=== PATIENT | female | born 2000 | race Two or more races ===

== ENCOUNTER 2023-05-11 16:07 | Outpatient (REF) | payer MEDICAID, SELFPAY ==
--- NOTE | ~2023-05-11 | XR_ITS ---
EXAMINATION: XR SCOLIOSIS CLINICAL INFORMATION: Chronic low back pain with bilateral sciatica COMPARISON: None available. TECHNIQUE: A single view of the thoracolumbar spine is obtained. FINDINGS: There are no intrinsic vertebral anomalies. There is an intrauterine device in the pelvis. There is a left convex curvature of the T5, measuring 14 degrees. There is a right convex thoracolumbar curvature, apex at L2, measuring 16 degrees. XR/XR scoliosis survey IMPRESSION: Scoliosis of the thoracic and lumbar spine.
== END 2023-05-11 16:08 | disposition home or self-care (01) ==
LOC: HO.XRAY 16:07
PROVIDERS: Visit Provider Registered Nurse
DX: M54.41 Lumbago with sciatica, right side (principal); M54.42 Lumbago with sciatica, left side; G89.29 Other chronic pain
CPT/HCPCS: 72082

== ENCOUNTER 2023-08-09 07:46 | Outpatient (REF) | payer MEDICAID, SELFPAY ==
--- NOTE | ~2023-08-09 | CT_ITS ---
EXAMINATION: CT LUMBAR SPINE WITHOUT CONTRAST CLINICAL INFORMATION: Radiculopathy with lower extremity symptoms COMPARISON: Scoliosis survey radiographs 05/11/2023 TECHNIQUE: A multidetector CT acquisition of the lumbar spine is obtained without contrast. This CT examination was performed using dose optimization techniques as appropriate, variously including the following: *Automated exposure control *Adjustment of mA and/or kV according to patient size (this includes techniques or standardized protocols for targeted exams where dose is matched to indication/reason for exam; i.e. extremities or head) *Use of iterative reconstruction technique DLP: 511 mGy-cm FINDINGS: The normal lumbar lordosis is preserved. Shallow dextrocurvature of the lumbar spine with scoliotic deformity better characterized on dedicated radiographs. Lumbar vertebral body heights are maintained. No expansile or destructive osseous lesion. No significant spondylolisthesis. Please note that canal patency is not well assessed on this examination due to inherent limitations of CT without intrathecal contrast. Within these limitations, multilevel degenerative changes with level by level detail are as follows: L1-L2: No significant spinal canal or neural foraminal stenosis. L2-L3: No significant spinal canal or neural foraminal stenosis. L3-L4: No significant spinal canal or neural foraminal stenosis. L4-L5: No significant spinal canal or neural foraminal stenosis. L5-S1: No significant spinal canal or neural foraminal stenosis. Partially visualized intrauterine device. CT/CT lumbar spine wo IV con IMPRESSION: Partially visualized thoracolumbar scoliotic deformity better characterized on prior dedicated radiograph examination. No significant spinal canal or neural foraminal stenosis in the lumbar spine. If symptoms persist, MRI can be considered for further evaluation.
== END 2023-08-09 07:47 | disposition home or self-care (01) ==
LOC: HO.CT 07:46
PROVIDERS: Visit Provider Internal Medicine
DX: M54.10 Radiculopathy, site unspecified (principal)
CPT/HCPCS: 72131

== ENCOUNTER 2023-09-27 10:07 | Outpatient (REF) | payer MEDICAID, SELFPAY ==
[2023-09-27 11:18] LABS: MANUAL DIFF FLAG NO
[2023-09-27 11:23] LABS: Basophils Percent Auto 0.4 % (0-2); Eosinophils Absolute Auto 0.1 X10*3/uL (0.0-0.4); Eosinophils Percent Auto 0.9 % (0-4); Hemoglobin 12.6 g/dl (12.0-16.0); Imm Gran Abs Auto 0.02 X10*3/uL (0.00-0.03); Imm Gran Pct Auto 0.3 % (0.0-0.4); Lymphocytes Absolute Auto 2.2 X10*3/uL (1.2-4.9); Lymphocytes Percent Auto 31.3 % (20-40); Mean Corpuscular HGB Conc 30.7 g/dl (31.0-35.0); Mean Corpuscular Hemoglobin 24.2 pg (27.0-33.0); Mean Corpuscular Volume 78.7 fL (80.0-98.0); Monocytes Absolute Auto 0.4 X10*3/uL (0.1-1.2); Monocytes Percent Auto 5.8 % (2-11); Neutrophils Absolute Auto 4.3 x10*3/uL (2.0-8.3); Neutrophils Percent Auto 61.3 % (45-73); Platelet Count 272 X10*3/uL (160-400); Red Blood Count 5.21 X10*6/uL (4.20-5.50); Red Cell Distribution Width 14.5 % (11.0-16.0); White Blood Count 6.9 X10*3/uL (4.8-10.8)
[2023-09-27 12:16] LABS: Alanine Aminotransferase 9 U/L (0-31); Albumin Level 4.3 g/dL (3.5-5.0); Alkaline Phosphatase 85 U/L (39-117); Anion Gap 12 (12-20); Aspartate Amino Transferase 13 U/L (5-31); Bilirubin Total 0.2 mg/dL (0.0-1.0); Blood Urea Nitrogen 8 mg/dL (9-16); Calcium 9.3 mg/dL (8.4-10.2); Carbon Dioxide 28 mmol/L (22-29); Chloride 103 mmol/L (96-108); Cholesterol 146 mg/dL (<200); Estimated Glomerular Filt Rate > 60; Glucose Random 94 mg/dL (60-115); HDL Cholesterol 55 mg/dL (>40); LDL Cholesterol Calculated 68 mg/dL (<100); Potassium 3.6 mmol/L (3.3-5.1); Sodium 139 mmol/L (135-145); Total Protein 7.2 g/dL (6.5-8.0); Triglycerides 119 mg/dL (<150)
[2023-09-28 12:39] LABS: Prolactin 6.1 ng/mL
== END 2023-09-27 10:08 | disposition home or self-care (01) ==
LOC: HO.HHCL 10:07
PROVIDERS: Visit Provider Family Medicine
DX: Z13.220 Encounter for screening for lipoid disorders (principal); N92.1 Excessive and frequent menstruation with irregular cycle; E66.3 Overweight
CPT/HCPCS: 36415; 80053; 80061; 84146; 84443; 85025

== ENCOUNTER 2023-10-23 13:28 | Outpatient (REF) | payer MEDICAID, SELFPAY ==
[2023-10-23 16:44] LABS: Iron 55 mcg/dL (30-160); Percent Iron Saturation 16 % (15-50); Total Iron Binding Capacity 354 mcg/dL (228-428); Unsaturated Iron Binding 299 ug/dL
[2023-10-23 17:03] LABS: Ferritin 11 ng/mL (10-122)
[2023-10-29 13:08] LABS: Hematocrit 39.1 % (35.0-45.0); Hemoglobin 12.5 g/dL (11.7-15.5); MCH 24.5 pg (27.0-33.0); MCV 76.5 fL (80.0-100.0); RBC 5.11 Million/uL (3.80-5.10); RDW 13.7 % (11.0-15.0)
== END 2023-10-23 13:29 | disposition home or self-care (01) ==
LOC: HO.HHCL 13:28
PROVIDERS: Visit Provider Family Medicine
DX: R71.8 Other abnormality of red blood cells (principal)
CPT/HCPCS: 36415; 82728; 83020; 83540; 85014; 85018; 85041

== ENCOUNTER → 2023-10-29 09:10 | Outpatient (REF) | payer MEDICAID, SELFPAY ==
--- NOTE | 2023-10-29 09:15 | HM_ITS ---
* Total monitoring time 1 day. * Underlying rhythm is sinus with an average rate of 88/Min. * Extremely rare ventricular ectopy. * No sustained arrhythmias. * No significant pauses or AV blocks. * Patient markers used 5 times, in association with sinus tachycardia and PVC. * Palpitations, chest pain in patient diary correlates with sinus tachycardia, PVC. MTDD
== END ==
LOC: HO.CARD 09:10
PROVIDERS: PCP Family Medicine; Visit Provider Family Medicine
DX: R00.2 Palpitations (principal)
CPT/HCPCS: 93225

== ENCOUNTER → 2023-10-29 09:15 | Outpatient (BNV) | payer MEDICAID, SELFPAY | PROVIDERS: PCP Family Medicine; Visit Provider Internal Medicine | DX: I49.3 Ventricular premature depolarization (principal) | CPT/HCPCS: 93227 ==

== ENCOUNTER 2025-06-22 14:04 | Outpatient (REF) | payer SELFPAY ==
--- OUTSIDE RECORDS SUMMARY | 2025-06-22 09:30 | XMS_ITS | Encounter Summary ---
Author Organization [employer] Address [address] [place] [address] [address] [place] [address] Care Team Providers Care Manager Search Engine Name Role Phone Tabatha Hahn MD Primary Care Provider [phone] Reason for Referral * Imaging (Routine) - Authorized Specialty Diagnoses / Procedures Referred By Ryley t Referred To Contact Radiology Diagnoses Infertility counseling Procedures US Pelvis Transvaginal Tabatha Hahn MD [address] [place] [address] Phone: tel: fax: [facility] Referral ID Status Reason Start Date Expiration Date V isits Requested Visits Authorized [id number] Authorized 06/22/2025 06/22/2026 1 1 * Imaging (Routine) - Authorized Specialty Diagnoses / Procedures Referred By Contricardo t Referred To Contact Radiology Diagnoses Infertility counseling Procedures Us Pelvis complete Tabatha Hahn MD [address] [place] [address] Phone: tel: fax: [facility] Referral ID Status Reason Start Date Expiration Date V isits Requested Visits Authorized [id number] Authorized 06/22/2025 06/22/2026 1 1 Reason for Visit * Reason Comments Annual Exam Encounter Details Date Type Department Care Team ([facility] st Contact Info) Description 06/22/2025 9:30 AM EDT Office Visit [facility] [address] [place] [address] Tabatha Hahn MD [address] [place] [address] Annual physical exam (Primary Dx); Infertility counseling; Encounter for immunization; Dietary counseling; Exercise counseling; Overweight Social History Tobacco Use Types Packs/Day Years Used Date Smoking Tobacco: Never Passive Smoke Exposure: Never Smokeless Tobacco: Never Depression Answer Date Recorded Patient Health Questionnaire-9 Score 0 06/22/2025 Patient Health Questionnaire-9 Score 0 06/22/2025 Last PHQ-9: Questionnaire Data Not on file 1 Housing Stability Answer Date Recorded What is your housing situation today? I have benny brown 01/27/[address] you li ve. Do you have problems with any of the following? None of the above 01/27/2025 Food Insecurity Answer Date Recorded Within the past 12 months, y ou worried that your food would run out before you got money to buy more: Never True 01/27/2025 Within the past 12 months,th e food you bought just didn't last and you didn't have enough money to get more: Never True 10/2024 Transportation Answer Date Recorded In the past 12 months, has l ack of transportation kept you from medical appts, meetings, work or from getting things needed for daily living? No 01/27/2025 Utilities Answer Date Recorded In the past 12 months, has t he electric, gas, oil or water company threatened to shut off services in your home? No 01/27/2025 Depression Answer Date Recorded Patient Health Questionnaire-2 Score 0 06/22/2025 Internet Access Answer Date Recorded Internet Access Q1 Yes 01/27/2025 Internet Access Q2 Not on file 01/27/2025 Comments No Intention Date Recorded Ambivalent about becoming (find ing) 06/22/2025 Sex and Gender Information Value Date Recorded Sex Assigned at Female 06/26/2022 10:26 AM EDT Legal Sex Female 10:26 AM EDT Gender Identity Female 06/22/2025 11:02 AM EDT Sexual Orientation Straight 06/26/2022 10 :26 AM EDT documented as of this encounter Last Filed Vital Signs Vital Sign Reading Time Taken Comments Blood Pressure 120/74 06/22/2025 9:29 AM EDT Pulse 80 06/22/2025 9:29 AM EDT Temperature 37.1 C (98.7 F) 06/22/2025 9:29 AM EDT Respiratory Rate 20 06/22/2025 9:29 AM EDT Oxygen Saturation 99% 06/22/2025 9:29 AM EDT Inhaled Oxygen Concentration - - Weight 86.5 kg (190 lb 9.6 oz) 06/22/2025 9:29 A M EDT Height 175.3 cm (5' 9 ) 06/22/2025 9:29 AM EDT Body Mass Index 28.15 06/22/2025 9:29 AM EDT documented in this encounter Functional Status * Over the past 2 weeks, how often have you been bothered by any of the following problems? Question Answer Date of Assessment Author Patient Health Questionnaire -2 Score 0 06/22/2025 10:21 AM EDT Audrey Barrett MA * Little interest or pleasure in doing things Answer Date of Assessment Author Not at all 06/22/2025 10:21 AM EDT Audrey Barrett MA * Feeling down, depressed, or hopeless Answer Date of Assessment Author Not at all 06/22/2025 10:21 AM EDT Audrey Barrett MA * Trouble falling or staying asleep, or sleeping too much Answer Date of Assessment Author Not at all 06/22/2025 10:21 AM EDT Audrey Barrett MA * Feeling tired or having little energy Answer Date of Assessment Author Not at all 06/22/2025 10:21 AM EDT Audrey Barrett MA * Poor appetite or overeating Answer Date of Assessment Author Not at all 06/22/2025 10:21 AM EDT Audrey Barrett MA * Feeling bad about yourself - or that you are a failure or have let yourself or your family down Answer Date of Assessment Author Not at all 06/22/2025 10:21 AM EDT Audrey Barrett MA * Trouble concentrating on things, such as reading the newspaper or watching television Answer Date of Assessment Author Not at all 06/22/2025 10:21 AM Audrey Miles MA * Moving or speaking so slowly that other people could have noticed? Or the opposite - being so fidgety or restless that you have been moving around a lot more than usual. Answer Date of Assessment Author Not at all 06/22/2025 10:21 AM Audrey Miles MA * Thoughts that you would be better off or hurting yourself in some way Answer Date of Assessment Author Not at all 06/22/2025 10:21 AM Audrey Miles MA * Patient Health Questionnaire-9 Score Answer Date of Assessment Author 0 06/22/2025 10:21 AM Audrey Miles MA documented as of this encounter Plan of Treatment Scheduled Orders Name Type Priority Associated Diagnoses Orde r Schedule Us Pelvis complete Imaging Routine Infertility counseling Expected: 06/22/2025, Expires: 06/22/2026 US Pelvis Transvaginal Imaging Routine Infertility counseling Expected: 06/22/2025, Expires: 06/22/2026 CBC auto differential Lab Routine Infertility counseling Expected: 06/22/2025 (Approximate), Expires: 06/22/2026 Comprehensive Metabolic Panel Lab Routine Annual physical exam Expected: 06/22/2025 (Approximate), Expires: 06/22/2026 TSH W/Reflex to FT4 Lab Routine Infertility counseling Expected: 06/22/2025 (Approximate), Expires: 06/22/2026 Estradiol Lab Routine Infertility counseling Expected: 06/22/2025, Expires: 06/22/2026 FSH Lab Routine Infertility counseling Expected: 06/22/2025, Expires: 06/22/2026 Anti-Mullerian Hormone (AMH), Female Lab Routine Infertility counseling Expected: 06/22/2025 (Approximate), Expires: 06/22/2026 Lipid Panel, Standard Lab Routine Infertility counseling Expected: 06/22/2025 (Approximate), Expires: 06/22/2026 Chlamydia/N. Gonorrhoeae RNA, TMA, Urogenitial Microbiology Routine Annual physical exam Ordered: 06/22/2025 HIV-1/2 Antigen and Antibodies, Fourth Generation, with Reflexes Lab Routine Annual physical exam Expected: 06/22/2025 (Approximate), Expires: 06/22/2026 Hepatitis C Antibody with Reflex to HCV, RNA, Quantitative, Real-Time PCR Lab Routine Annual physical exam Expected: 06/22/2025, Expires: 06/22/2026 documented as of this encounter Procedures Procedure Name Priority Date/Time Associated Diagnosis Comments PAP SMEAR Routine 10/11/2022 documented in this encounter Results * Pap Smear (10/11/2022) Pap Smear 1. NILM 1. NILM Swab 10/11/2022 us Historical Provider LAB CYTOLOGY ORDERABLES F inal Result documented in this encounter Visit Diagnoses Diagnosis Annual physical exam- Primary Routine general medical examination at a health care facility Infertility counseling Encounter for immunization Dietary counseling Dietary surveillance and counseling Exercise counseling Overweight documented in this encounter Additional Health Concerns Assessment Noted Time PHQ-9 Depression Total Score: 0 06/22/20 25 10:21 AM EDT documented as of this encounter Care Teams Manager Search Engine Relationship Specialty Start Date End Date Tabatha Hahn MD [address] [place] [id number] PCP - General Family Medicine 07/16/23 documented as of this encounter
[2025-06-22 16:03] LABS: CT PCR Urine NOT DETECTED (Not Detect.); NG PCR Urine NOT DETECTED (Not Detect.)
--- OUTSIDE RECORDS SUMMARY | 2025-06-22 17:43 | XMS_ITS | Encounter Summary ---
Author Organization [employer] Address [address] [facility] [address] [place] [address] Care Team Providers Care Granite Fabricator Name Role Phone Tabatha Hahn MD Primary Care Provider [phone] Reason for Visit * Reason Comments Med Change Request Encounter Details Date Type Department Care Team ([facility] st Contact Info) Description 06/22/2025 Refill [facility] [address] [place], [place] [phone] Tabatha Hahn MD [address] [place] [address] Social History Tobacco Use Types Packs/Day Years [...] Q2 Not on file 01/27/2025 Comments No Sex and Gender Information Value Date Recorded Sex Assigned at Female 06/26/2022 10:26 AM EDT Legal Sex Female 10:26 AM EDT Gender Identity Female 06/22/2025 11:02 AM EDT Sexual Orientation Straight 06/26/2022 10 :26 AM EDT documented as of this encounter Functional Status * Over the [...] 10:21 AM EDT Audrey Barrett MA * Moving or speaking so slowly that other people could have noticed? Or the opposite - being so fidgety or restless that you have been moving around a lot more than usual. Answer Date of Assessment Author Not at all 06/22/2025 10:21 AM EDT Audrey Barrett MA * Thoughts that you would be better off or hurting yourself in some way Answer Date of Assessment Author Not at all 06/22/2025 10:21 AM EDT Audrey Barrett MA * Patient Health Questionnaire-9 Score Answer Date of Assessment Author 0 06/22/2025 10:21 AM EDT Audrey Barrett MA documented as of this encounter Plan of Treatment Not on file documented as of this encounter Visit Diagnoses Not on filedocumented in this encounter Additional Health Concerns Assessment Noted Time PHQ-9 Depression Total Score: 0 06/22/20 10:21 AM EDT documented as of this encounter Care Teams Granite Fabricator Relationship Specialty Start Date End Date Tabatha Hahn MD [address] [id number] PCP - General Family Medicine 07/16/23 documented as of this encounter
--- OUTSIDE RECORDS SUMMARY | 2025-06-22 17:43 | XMS_ITS | Encounter Summary ---
Author Organization [employer] Address [address] [place] [address] Care Team Providers Care Health Center Assistant Name Role Phone Tabatha Hahn MD Primary Care Provider [phone] Encounter Details Date Type Department Care Team (Latest Contact Info) Description 06/22/2025 Travel Social History Tobacco Use Types Packs/Day Years [...] documented as of this encounter Care Teams Health Center Assistant Relationship Specialty Start Date End Date Tabatha Hahn MD [address] [place] [address] PCP - General Family Medicine 07/16/23 documented as of this encounter
--- OUTSIDE RECORDS SUMMARY | 2025-06-22 17:43 | XMS_ITS | Encounter Summary ---
Author Organization [employer] Address [address] [place] [address] Care Team Providers Care Heavy Equipment Diesel Mechanic Name Role Phone Tabatha Hahn MD Primary Care Provider [phone] Encounter Details Date Type Department Care Team (Late st Contact Info) Description 06/22/2025 Orders Only [facility] [address] [place], [place] [phone] Tabatha Hahn MD [address] [place], [place] [phone] Social History Tobacco Use Types Packs/Day Years [...] Not at all 06/22/2025 10:21 AM EDT Audery Barrett MA * Trouble falling or staying [...] on file documented as of this encounter Procedures Procedure Name Priority Date/Time Associated Diagnosis Comments CHLAMYDIA/TRICHOMON /NEISSERIA GONORRHOEAE, PCR, URINE Routine 06/22/2025 10:20 AM EDT documented in this encounter Results * Chlamydia/Trichomonas/Neisseria gonorrhoeae, PCR, Urine (06/22/2025 10:20 AM EDT) CT PCR, Urine NOT DETECTED Not Detect. [facility] Comment:A not detected test result does not exclude the possibilityof infection because test results can be affected byimproper specimen collection, concurrent antibiotic therapy,or the number of organisms in the specimen which may bebelow the sensitivity of the test. As with many diagnostictests, results from the Xpert CT/NG assay should beinterpreted in conjunction with other laboratory andclinical data available to the clinician.The Xpert CT/NG assay should not be used for the evaluationof suspected sexual abuse or for other medico-legalindications. Additional testing is recommended in anycircumstance when false positive or false negative resultscould lead to adverse medical, social or psychologicalconsequences. NG PCR, Urine NOT DETECTED Not Detect. [facility] Comment:A not detected test result does not exclude the possibilityof infection because test results can be affected byimproper specimen collection, concurrent antibiotic therapy,or the number of organisms in the specimen which may bebelow the sensitivity of the test. As with many diagnostictests, results from the Xpert CT/NG assay should beinterpreted in conjunction with other laboratory andclinical data available to the clinician.The Xpert CT/NG assay should not be used for the evaluationof suspected sexual abuse or for other medico-legalindications. Additional testing is recommended in anycircumstance when false positive or false negative resultscould lead to adverse medical, social or psychologicalconsequences. 06/22/2025 10:2 0 AM EDT 06/22/2025 2:07 PM EDT us Tabatha Hahn MD LAB URINE ORDERABLES Final Re sult [facility] [address] [place] [address] [phone] documented in this encounter Visit Diagnoses Not on filedocumented in this encounter Additional Health Concerns Assessment Noted Time PHQ-9 Depression Total Score: 0 06/22/20 25 10:21 AM EDT documented as of this encounter Care Teams Heavy Equipment Diesel Mechanic Relationship Specialty Start Date End Date Tabatha Hahn MD [address] [place] [address] PCP - General Family Medicine 07/16/23 documented as of this encounter
--- OUTSIDE RECORDS SUMMARY | 2025-06-22 17:43 | XMS_ITS | Clinical Summary ---
Author Organization [employer] Address [address] [place] [address] Care Team Providers Care Aerospace Engineer Officer Armament Name Role Phone Tabatha Hahn MD Primary Care Provider [phone] Allergies No known active allergies Medications multivitamin () 27-0.8 MG tablet Take 1 tablet by mouth Once per day. 120 tablet 3 025 Active Diclofenac Sodium (Voltaren) 1 % gelIndications: Chronic low back pain with bilateral sciatica, unspecified back pain laterality Apply 2 g topically if needed in the morning and at bedtime (muscle pain). 100 g 3 023 2024 Discontinued lidocaine (Lidoderm) 5 % patchIndication s:Chronic low back pain with bilateral sciatica, unspecified back pain laterality Apply 1 patch topically in the morning. Remove & discard patch within 12 hours or as directed by . 30 patch 1 023 2024 Discontinued ibuprofen 600 MG tabletIndicatio ns:Chronic low back pain with bilateral sciatica, unspecified back pain laterality TAKE 1 TABLET BY MOUTH 3 TIMES DAILY. 90 tablet 023 2024 Discontinued Levonorgestrel (Mirena, 52 MG,) 20 MCG/DAY intrauterine device 52 mg by Intrauterine route. 024 2024 Discontinued(T herapy completed) Active Problems Problem Noted Date Diagnosed Date Annual physical exam 06/22/2025 Sinus tachycardia seen on monitor worker 2023 Alpha thalassemia trait 11/14/2023 Assessment & Plan (11/14/2023 9:48 PM EDT): The patients alpha thalassemia trait does not currently impact her health adversely but has implication her offspring. Counseled on genetic implications and management during . History of varicella 09/26/2023 09/26/2023 Overweight 09/26/2023 Family history of cancer in mother 09/26/2023 Assessment & Plan (09/26/2023 10:51 AM EST): Patient presented visit requesting to get evaluated for cancer due to family Hx will be referred to Genetics further evaluation. Anemia 01/01/2023 Menorrhagia 01/01/2023 Assessment & Plan (09/26/2023 10:43 AM EST): Patient will be sent for labs for further evaluation. -Labs: CBC, TSH/FT4, Prolactin Will follow up with results. Pityriasis versicolor 01/01/2023 Family history of colorectal cancer 03/08/2021 09/26/2023 Overview (09/26/2023): Mother just diagnosed at age 39. Resolved Problems Problem Noted Date Diagnosed Date Resolved Date Palpitations 09/26/2023 06/22/2025 Assessment & Plan (11/14/2023 9:47 PM EDT): The patient's palpitations and documented sinus tachycardia episodes are concerning. A referral to a skidder runner is recommended for further evaluation to determine the underlying cause of the tachycardia. Assessment & Plan (09/26/2023 10:43 AM EST): Patient that presented visit with complaints of palpitations will be provided with a 24hr monitor for further evaluation. Screening for hyperlipidemia 09/26/2023 06/22/2025 Acne vulgaris 08/07/2016 09/26/2023 Encounters Date Type Department Care Team Description 06/22/2025 9:30 AM EDT Office Visit [facility] [address] [place] [address] Tabatha Hahn MD Annual physical exam (Primary Dx); Infertility counseling; Encounter for immunization; Dietary counseling; Exercise counseling; Overweight 06/22/2025 Orders Only [facility] [address] [place] [address] Tabatha Hahn MD 06/22/2025 Refill [facility] [address] [place] [address] Tabatha Hahn MD 06/22/2025 Travel 06/19/2025 Telephone [facility] [address], [place] [phone] Tabatha Hahn MD Chart Prep 06/12/2025 Patient Outreach [facility] [address], [place] [phone] Tabatha Hahn MD Pre-visit Planning ([facility] screening completed on 01/27/25 ) from Last 3 Months Immunizations Immunization Administration Dates Next Due DTaP 09/02/2005, 5,02/03/2003,02/24,2001,2001 HPV 9-Valent 08/07/2016,08/05/2015 HPV, Quadrivalent 08/07/2016,08/05/2015,06/12/20 14 Hep A, ped/adol, 2 dose 04/05/2007,02/04/2006 Hep B, Adolescent or Pediatric 3,12/25/2004,02/24/2002,12/16,2001 Hib (PRP-T) 12/25/2004, 2,2001,10/17 IPV 07/01/2013, 5,02/03/2003,02/24,2001,2001 Influenza injectable quadriv alent preservative free 08/07/2016,08/05/2015,07/01/2013 Influenza, IIV3, injectable 08/07/2016, 5,07/01/2013 Influenza, live, intranasal 06/12/2014 Influenza, seasonal, injecta ble, preservative free 06/22/2025 MMR 02/04/2006 MMRV 08/25/2013 Meningococcal ACWY, unspecified 03/29/2018,07/01 Meningococcal MCV4P ACYW-135 03/29/2018,07/01/20 13 Tdap 06/22/2025,08/25/2013 Varicella 07/01/2013 Family History Medical History Relation Name Comments Hyperlipidemia Father Hypertension Mother Coronary artery disease Paternal Grandfather Hyperlipidemia Paternal Grandfather Asthma Sister Relation Name Status Comments Father Mother Paternal Grandfather Sister Social History Tobacco Use Types Packs/Day Years Used Date Smoking Tobacco: Never Passive Smoke Exposure: Never Smokeless Tobacco: Never Tobacco Cessation:Counseling Given: Not Answered Depression Answer Date Recorded Patient Health Questionnaire-9 [...] Orientation Straight 06/26/2022 10 :26 AM EDT Last Filed Vital Signs Vital Sign Reading [...] Mass Index 28.15 06/22/2025 9:29 AM EDT Plan of Treatment Health Maintenance Due Date Last Done Comments HIV Screening 2001 Meningococcal B Vaccine (1 of 2 - Standard) 2017 Hepatitis C Screening 2019 Chlamydia and Gonorrhea Screening 05/12/2021 06/22/2025, 05/12/2020 Pap Smear 10/11/2025 10/11/2022 SDOH Screening 01/27/2026 01/27/2025 Disability Screening 02/04/2026 02/04/2025 Alcohol/Substance Use Screening 06/22/2026 06/22/2025 COVID-19 Vaccine ( season) 2026 12/21/2021, 01/07/2021 Postponed from 04/27/2025 (Patient Refused) Depression Screening 06/22/2026 06/22/2025, 06/22/20 25 Family Planning (PISQ) 06/22/2026 06/22/2025 Tobacco Screening 06/22/2026 06/22/2025 DTaP/Tdap/Td Vaccines (8 - Td or Tdap) 06/22/2035 06/22/2025, 08/25/2013, 09/02/2005, Additional history exists Zoster Vaccines (1 of 2) 2051 RSV Patients and Patients Aged 60 years or older (1 - 1-dose 75+ series) 2076 HIB Vaccines Completed 12/25/2004, 08/2001, 2001, Additional history exists Hepatitis A Vaccines Completed 04/05/2007, 02/05/20 06 Hepatitis B Vaccines Completed 07/01/2013, 12/25/2004, 02/24/2002, Additional history exists IPV Vaccines Completed 07/01/2013, 08/2004, 02/03/2003, Additional history exists HPV Vaccines Completed 08/07/2016, 07/27, 08/05/2015, Additional history exists Meningococcal Vaccine Completed 03/29/2018 , 03/29/2018, 07/01/2013, Additional history exists Influenza Vaccine Completed 06/22/2025, , 08/07/2016, Additional history exists Pneumococcal Vaccine: Pediatrics (0 to 5 Years) and At-Risk Patients (6 to 49) Years Aged Out No longer eligible based on patient's age to complete this topic RSV under 20 months Aged Out No longe r eligible based on patient's age to complete this topic Rotavirus Vaccines Aged Out No longer eligible based on patient's age to complete this topic Procedures Procedure Name Priority Date/Time Associated Diagnosis Comments CHLAMYDIA/TRICHOMON /NEISSERIA GONORRHOEAE, PCR, URINE Routine 06/22/2025 10:20 AM EDT PAP SMEAR Routine 10/11/2022 from Last 3 Months or Most Recently Relevant to Health Maintenance Results * Chlamydia/Trichomonas/Neisseria gonorrhoeae, PCR, Urine (06/22/2025 10:20 AM EDT) CT PCR, Urine NOT DETECTED Not Detect. [facility] Comment:A not detected test result [...] NG PCR, Urine NOT DETECTED Not Detect. [facility] Comment:A not detected test result [...] 0 AM EDT 06/22/2025 2:07 PM EDT Tabatha Hahn MD LAB URINE ORDERABLES Final Re sult [facility] [address] [place] [phone] * Pap Smear (10/11/2022) Pap Smear 1. NILM 1. NILM Swab 10/11/2022 Historical Provider LAB CYTOLOGY ORDERABLES F inal Result from Last 3 Months or Most Recently Relevant to Health Maintenance Insurance [facility] PPO Care Teams Aerospace Engineer Officer Armament Relationship Specialty Start Date End Date Tabatha Hahn MD [address] [place] [phone] PCP - General Family Medicine 07/16/23
--- OUTSIDE RECORDS SUMMARY | 2025-06-22 17:44 | XMS_ITS | Encounter Summary ---
Author Organization [employer] Address [address] [address] [facility] [address] [place] [address] Care Team Providers Care Bench Hand Machine Name Role Phone Antoinette Moreno Primary Care Provider Ashely Obrien Primary Care Provider [phone] Tabatha Hahn MD Primary Care Provider [phone] Reason for Visit * Reason Onset Date Comments returning call 09/05/2022 Encounter Details Date Type Department Care Team (Late st Contact Info) Description 09/05/2022 Telephone [facility] [address] [place] [address] Antoinette Moreno FNP returning call Social History Tobacco Use Types Packs/Day Years Used Date Smoking Tobacco: Never Assessed Comments Unknown Sex and Gender Information Value Date Recorded Sex Assigned at Female 06/26/2022 10:26 AM EDT Legal Sex Female 10:26 AM EDT Gender Identity Female 06/22/2025 11:02 AM EDT Sexual Orientation Straight 06/26/2022 10 :26 AM EDT documented as of this encounter Miscellaneous Notes * Telephone Encounter - Epi Whitt - 09/05/2022 3:33 PM EST Tc from pt returning call. Pt requesting a call back documented in this encounter Plan of Treatment Not on file documented as of this encounter Visit Diagnoses Not on filedocumented in this encounter Care Teams Bench Hand Machine Relationship Specialty Start Date End Date Antoinette Moreno FNP PCP - General Family Medicine 04/20/22 01/18/23 Ashely Gottlieb FNP [address] [place] [address] PCP - General Family Medicine 01/19/23 07/15/23 Tabatha Hahn MD [address] [place] [address] PCP - General Family Medicine 07/16/23 documented as of this encounter
--- OUTSIDE RECORDS SUMMARY | 2025-06-22 17:44 | XMS_ITS | Encounter Summary ---
Author Organization [employer] Address [address] [facility] [address] [place] [address] Care Team Providers Care Compatibility Test Engineer Name Role Phone Tabatha Hahn MD Primary Care Provider [phone] Reason for Visit * Reason Onset Date Comments Chart Prep 06/19/2025 Encounter Details Date Type Department Care Team ([facility] st Contact Info) Description 06/19/2025 Telephone [facility] [address] [place] [address] Tabatha Hahn MD [address] [place], [place] [phone] Chart Prep Social History Tobacco Use Types Packs/Day Years Used Date Smoking Tobacco: Never Passive Smoke Exposure: Never Smokeless Tobacco: Never Depression Answer Date Recorded Patient Health Questionnaire-9 Score 2 09/26/2023 Patient Health Questionnaire-9 Score 2 09/26/2023 Last PHQ-9: Questionnaire Data Not on file 0 09/26/2023 Housing Stability Answer Date Recorded What is [...] Date Recorded Patient Health Questionnaire-2 Score 0 09/26/2023 Internet Access Answer Date Recorded Internet Access Q1 Yes 01/27/2025 Internet Access Q2 Not on file 01/27/2025 Comments Unknown Sex and Gender Information Value Date Recorded Sex Assigned at Female 06/26/2022 10:26 AM EDT Legal Sex Female 10:26 AM EDT Gender Identity Female 06/22/2025 11:02 AM EDT Sexual Orientation Straight 06/26/2022 10 :26 AM EDT documented as of this encounter Miscellaneous Notes * Telephone Encounter - Meggan Espinal MA - 06/19/2025 10:44 AM EDT Chart Prep Labs: not done Images: done Referrals: complete Vaccines due: Covid, Flu, and Tdap Screenings: pap smear, STI screening, and PISQ Overdue care gaps: SBIRT and PHQ-9 documented in this encounter Plan of Treatment Not on file documented as of this encounter Visit Diagnoses Not on filedocumented in this encounter Additional Health Concerns Assessment Noted Time PHQ-9 Depression Total Score: 2 09/26/19 10:21 AM EST documented as of this encounter Care Teams Compatibility Test Engineer Relationship Specialty Start Date End Date Tabatha Hahn MD [address] [place] [address] PCP - General Family Medicine 07/16/23 documented as of this encounter
== END 2025-06-22 14:05 | disposition home or self-care (01) ==
LOC: HO.LNP 14:04
PROVIDERS: Visit Provider Family Medicine
DX: Z00.00 Encounter for general adult medical examination without abnormal findings (principal); Z20.2 Contact with and (suspected) exposure to infections with a predominantly sexual mode of transmission
CPT/HCPCS: 87491; 87591